=== PATIENT | female | born 1995 | race Caucasian/White ===

== ENCOUNTER 2017-05-06 03:37 | Emergency (ER) | payer BC ==
[~2017-05-06] VITALS: Ht 157.5 cm; Wt 62.1 kg
[2017-05-06 03:44] VITALS: BP 143/100
[2017-05-06 04:02] LABS: Basophils # (auto) 0 uL; Basophils % (auto) 0.4 % (0.0-2.0); Eosinophils # (auto) 0 uL; Eosinophils % (auto) 0.4 % (0.0-7.0); Hematocrit 38.3 % (36.0-46.0); Hemoglobin 12.8 g/dL (12.2-16.2); Lymphocytes # (auto) 3.2 uL; Lymphocytes % (auto) 28.4 % (10.0-50.0); Mean Corpuscular Hemoglobin 29.5 pg (28.0-32.0); Mean Corpuscular Hgb Conc. 33.4 g/dL (32.0-36.0); Mean Corpuscular Volume 88.5 fL (80.0-100.0); Monocytes # (auto) 0.6 uL; Monocytes % (auto) 5.7 % (0.0-12.0); Neutrophils # (auto) 7.3 uL; Neutrophils % (auto) 65.1 % (37.0-80.0); Nucleated Red Blood Cells % 0.1 %; Platelet Count (auto) 303 10^3/uL (140-450); Red Blood Cells 4.33 10^6/uL (4.0-5.20); Red Cell Distribution Width 12.9 % (11.8-14.3); White Blood Cell 11.2 10^3/uL (4.4-10.8)
[2017-05-06 04:09] LABS: Urine WBC None Seen /hpf (0 - 5)
[2017-05-06 04:54] LABS: Urine Amorphous Crystal FEW /hpf (None Seen); Urine Bacteria FEW /hpf (None Seen); Urine Blood Negative /uL (Negative); Urine Mucus FEW (None Seen); Urine Specific Gravity 1.027 (1.001-1.035)
[2017-05-06 05:00] LABS: BUN/Creatinine Ratio 28.6; Potassium 3.8 mmol/L (3.5-5.1)
[2017-05-06 05:01] LABS: Bilirubin, Total 0.3 mg/dL (0.2-1.0); Calcium 8.9 mg/dL (8.5-10.1); Total Protein 7.5 g/dL (6.4-8.2)
[2017-05-06] MEDS ORDERED: KETOROLAC TROMETH 60MG/2ML VIAL IM ONE ×2 (06:30→06:40)
[2017-05-06] MEDS ORDERED: ONDANSETRON ODT 4 MG TAB PO ONE (06:30)
[2017-05-06] MEDS ORDERED: ONDANSETRON HCL 4 MG/2 ML VIAL ONE (06:40)
== END 2017-05-06 07:31 | disposition home or self-care (01) ==
LOC: ER 03:39 → EDBD 03:39 → ER 07:30
DX: N13.70 Vesicoureteral-reflux, unspecified (principal); N39.0 Urinary tract infection, site not specified
CPT/HCPCS: 36415; 74176; 80053; 81001; 81025; 82150; 83690; 85025; 96372; 99285; J1885; J2405

== ENCOUNTER 2017-12-04 10:21 | Emergency (ER) | payer BC ==
[~2017-12-04] VITALS: Ht 157.5 cm; Wt 69.4 kg
[2017-12-04 11:17] LABS: Urine Bacteria MOD /hpf (None Seen); Urine Blood Negative /uL (Negative); Urine Specific Gravity 1.003 (1.001-1.035); Urine WBC 1 /hpf (0 - 5)
[2017-12-04 11:28] LABS: Basophils # (auto) 0.1 uL; Basophils % (auto) 0.7 % (0.0-2.0); Eosinophils # (auto) 0 uL; Eosinophils % (auto) 0.5 % (0.0-7.0); Hematocrit 40.4 % (36.0-46.0); Hemoglobin 13.6 g/dL (12.2-16.2); Lymphocytes # (auto) 2.5 uL; Lymphocytes % (auto) 30.5 % (10.0-50.0); Mean Corpuscular Hemoglobin 29.2 pg (28.0-32.0); Mean Corpuscular Hgb Conc. 33.6 g/dL (32.0-36.0); Mean Corpuscular Volume 86.9 fL (80.0-100.0); Monocytes # (auto) 0.5 uL; Monocytes % (auto) 6.2 % (0.0-12.0); Neutrophils % (auto) 62.1 % (37.0-80.0); Platelet Count (auto) 309 10^3/uL (140-450); Red Blood Cells 4.65 10^6/uL (4.0-5.20); Red Cell Distribution Width 13.1 % (11.8-14.3); White Blood Cell 8.1 10^3/uL (4.4-10.8)
[2017-12-04 11:55] LABS: Bilirubin, Total 0.4 mg/dL (0.2-1.0); Calcium 8.9 mg/dL (8.5-10.1); Potassium 4.1 mmol/L (3.5-5.1); Total Protein 7.7 g/dL (6.4-8.2)
[2017-12-04 12:05] VITALS: BP 127/89
== END 2017-12-04 12:12 | disposition home or self-care (01) ==
LOC: ER 10:21
DX: R10.31 Right lower quadrant pain (principal); Z87.442 Personal history of urinary calculi
CPT/HCPCS: 36415; 80053; 81001; 81025; 85025